=== PATIENT | female | born 2000 | race Caucasian/White ===

== ENCOUNTER 2021-07-22 08:17 | Emergency (ER) | payer MEDICAID, OTHER ==
[~2021-07-22] VITALS: Ht 160 cm; Wt 95.3 kg
--- NOTE | 2021-07-22 08:55 | ED Abdominal Pain ---
General Chief Complaint: Abdominal/GI Problems Stated Complaint: EPIGASTRIC PAIN; VOMITING Nursing Triage Note: Patient reports sudden onset of nausea/vomiting/diarrhea and epigastric pain at 0200 this morning. She reports she has been seeing her PCP since March for suspected gallbladder disease, but states she normally does not have diarrhea or epigastric pain with her gallbladder attacks. She states her PCP has had her taking protonix since July 15. She denies any sick contacts. Source of Information: Patient Exam Limitations: No Limitations History of Present Illness Date Seen by Provider: Jul 22, 2021 Time Seen by Provider: 08:24 Initial Comments 21-year-old female with no significant past medical history coming in due to abdominal pain. She said she began having intermittent abdominal pain starting in March. At that point it would last 45 minutes or so and then go away it was like stabbing pain in the upper abdomen. July 10 the pain became more severe and constant. She saw her doctor on July 15 and was started on Protonix. She was told that it could be her gallbladder. Pain had been better until 2 AM this morning when it became severe, she started having vomiting that was nonbloody nonbilious as well as diarrhea. She had vomiting and diarrhea with the July 10 episode as well. Prior to this, she would have some nausea but never actually vomited. Food does not seem to change it for the better or worse. She is otherwise denying any other acute complaints including any fever, chest pain, shortness of breath, vaginal bleeding, vaginal discharge, dysuria, urinary frequency, rash, weakness, numbness, or any other concerns. She is on the shots, is unsure of her last LMP. Allergies and Home Medications Allergies Coded Allergies: No Known Drug Allergies (Unverified , 07/22/21) Patient Home Medication List Home Medication List Reviewed: Yes Review of Systems Review of Systems Constitutional: No chills, No fever EENTM: No Blurred Vision Respiratory: Denies Cough, Denies Shortness of Air Cardiovascular: Denies Chest Pain Gastrointestinal: Abdominal Pain, Diarrhea, Nausea, Vomiting Genitourinary: No Symptoms Reported Musculoskeletal: no symptoms reported Skin: no symptoms reported Psychiatric/Neurological: No Symptoms Reported Endocrine: No Symptoms Reported Hematologic/Lymphatic: No Symptoms Reported All Other Systems Reviewed Negative Unless Noted: Yes Past Tlvmpvz-Tfbhkj-Rtdgsz Hx Patient Social History Tobacco Use?: No Use of E-Cig and/or Vaping dev: Yes Substance use?: No Alcohol Use?: Yes Alcohol type: Beer Alcohol Frequency: Couple times a week Pt feels they are or have been: No Past Medical History Surgeries: Yes Orthopedic (right hand surgery) Physical Exam Vital Signs Vital Signs - First Documented 07/22/21 08:35 Temp 35.4 Pulse 73 Resp 16 B/P (MAP) 143/81 (101) Pulse Ox 99 O2 Delivery Room Air Capillary Refill : Less Than 3 Seconds Height/Weight/BMI Height: '" Weight: lbs. oz. kg; 37.00 BMI Method: General Appearance: WD/WN, no apparent distress HEENT: PERRL/EOMI, normal ENT inspection, pharynx normal Neck: non-tender, full range of motion, supple, normal inspection Respiratory: chest non-tender, lungs clear, normal breath sounds, no respiratory distress, no accessory muscle use Cardiovascular: regular rate, rhythm, no edema, no murmur Gastrointestinal: normal bowel sounds, soft; No distended, No guarding, No rebound; tenderness Extremities: normal range of motion, non-tender, normal inspection, no pedal edema, no calf tenderness, normal capillary refill Back: normal inspection, no CVA tenderness, no vertebral tenderness Neurologic/Psychiatric: no motor/sensory deficits, alert, normal mood/affect Skin: normal color, warm/dry Progress/Results/Core Measures Results/Orders Lab Results Laboratory Tests Test 07/22/21 08:20 07/22/21 08:53 Range/Units Urine Test NEGATIVE NEGATIVE White Blood Count 7.3 4.3-11.0 10^3/uL Red Blood Count 4.27 3.80-5.11 10^6/uL Hemoglobin 14.1 11.5-16.0 g/dL Hematocrit 40 35-52 % Mean Corpuscular Volume 94 80-99 fL Mean Corpuscular Hemoglobin 33 25-34 pg Mean Corpuscular Hemoglobin Concent 35 32-36 g/dL Red Cell Distribution Width 12.1 10.0-14.5 % Platelet Count 312 130-400 10^3/uL Mean Platelet Volume 9.7 9.0-12.2 fL Immature Granulocyte % (Auto) 0 % Neutrophils (%) (Auto) 80 H 42-75 % Lymphocytes (%) (Auto) 13 12-44 % Monocytes (%) (Auto) 6 0-12 % Eosinophils (%) (Auto) 1 0-10 % Basophils (%) (Auto) 0 0-10 % Neutrophils # (Auto) 5.9 1.8-7.8 X 10^3 Lymphocytes # (Auto) 1.0 1.0-4.0 X 10^3 Monocytes # (Auto) 0.4 0.0-1.0 X 10^3 Eosinophils # (Auto) 0.0 0.0-0.3 10^3/uL Basophils # (Auto) 0.0 0.0-0.1 10^3/uL Immature Granulocyte # (Auto) 0.0 0.0-0.1 10^3/uL Sodium Level 137 135-145 MMOL/L Potassium Level 4.0 3.6-5.0 MMOL/L Chloride Level 104 98-107 MMOL/L Carbon Dioxide Level 22 21-32 MMOL/L Anion Gap 11 5-14 MMOL/L Blood Urea Nitrogen 10 7-18 MG/DL Creatinine 0.75 0.60-1.30 MG/DL Estimat Glomerular Filtration Rate 99 BUN/Creatinine Ratio 13 Glucose Level 115 H 70-105 MG/DL Calcium Level 9.6 8.5-10.1 MG/DL Corrected Calcium 8.5-10.1 MG/DL Total Bilirubin 1.2 H 0.1-1.0 MG/DL Aspartate Amino Transf (AST/SGOT) 271 H 5-34 U/L Alanine Aminotransferase (ALT/SGPT) 167 H 0-55 U/L Alkaline Phosphatase 95 40-136 U/L Total Protein 7.8 6.4-8.2 GM/DL Albumin 4.7 H 3.2-4.5 GM/DL Lipase 24 8-78 U/L My Orders Orders - JACKY LEGER MD Ondansetron Injection (Zofran Injectio (07/22/21 09:00) Lidocaine 2% Viscous 15 Ml (Xylocaine Vi (07/22/21 09:00) Antacid Suspension (Mylanta Suspension (07/22/21 09:00) Ed Iv/Invasive Line Start (07/22/21 08:48) Comprehensive Metabolic Panel (07/22/21 08:48) Lipase (07/22/21 08:48) Cbc With Automated Diff (07/22/21 08:48) Ct Abdomen/Pelvis W (07/22/21 08:48) Hcg,Qualitative Urine (07/22/21 08:53) Iohexol Injection (Omnipaque 350 Mg/Ml 1 (07/22/21 09:30) Received Contrast (Hold Metformin- Contr (07/22/21 09:30) Ns (Ivpb) (Sodium Chloride 0.9% Ivpb Bag (07/22/21 09:30) Medications Given in ED Current Medications Medications Dose Ordered Sig/Brayan Route Start Time Stop Time Status Last Admin Dose Admin Al Hydrox/Mg Hydrox/Simethicone 30 ml ONCE ONCE PO 07/22/21 09:00 07/22/21 09:01 DC 07/22/21 09:03 30 ML Iohexol 100 ml ONCE ONCE IV 07/22/21 09:30 07/22/21 09:32 DC 07/22/21 09:38 100 ML Lidocaine HCl 15 ml ONCE ONCE PO 07/22/21 09:00 07/22/21 09:01 DC 07/22/21 09:03 15 ML Ondansetron HCl 4 mg ONCE ONCE IVP 07/22/21 09:00 07/22/21 09:01 DC 07/22/21 09:03 4 MG Sodium Chloride 100 ml ONCE ONCE IV 07/22/21 09:30 07/22/21 09:32 DC 07/22/21 09:38 80 ML Vital Signs/I&O 07/22/21 08:35 Temp 35.4 Pulse 73 Resp 16 B/P (MAP) 143/81 (101) Pulse Ox 99 O2 Delivery Room Air Blood Pressure Mean: 101 Progress Progress Note : Progress Note 21-year-old female with above history coming in due to abdominal pain with nausea and diarrhea. ABCs were intact and vitals were stable on presentation. Physical exam with epigastric and right upper quadrant tenderness. The patient contacted her PCP this morning they told her to come to the ER to get a "scan". Given the vomiting and diarrhea this very likely could be gastroenteritis which has been going around this community, however she is a little bit more tender locally than I would expect. Because of this an IV was placed and basic labs including LFTs and urine test ordered. CT abdomen pelvis with contrast ordered as well. She was given Zofran for nausea as well as Maalox and lidocaine for the pain to see if that would help. Labs significant for normal white blood cell count, negative test, n ormal lipase, slightly elevated bilirubin at 1.2 which is near normal, slightly elevated AST and ALT around 200. CT abdomen and pelvis with gallstones but no signs of cholecystitis,, bile duct slightly dilated at 1 cm but otherwise no other acute findings. I called and discussed the case with the surgeon on-call Dr. Velázquez, and given her normal vitals and otherwise is well-appearing he does believe it is possibly choledocholithiasis but that she likely passed the stones all the time. He wants to follow her up as an outpatient and take her gallbladder out soon. He recommended repeat labs on Tuesday and if they are trending up that she needs to come back to the ER. I discussed all of this with the patient, and given she is well-appearing with repeat abdominal exam without any signs of peritonitis, vitals normal, and no signs of ascending cholangitis I believe this is a thorough plan. She is agreeable and says she has rapid follow-up with her PCP today and will get the labs ordered for Tuesday. I believe she is stable for discharge. She was sent home with strict return precautions. Diagnostic Imaging Plain Films/CT/US/NM/MRI: abdomen, pelvis Comments [facility], [place] NAME: MELY VAZQUEZ [facility] REC#: [id number] PT STATUS: REG ER : 2000 PHYSICIAN: JACKY LEGER MD ADMIT DATE: 07/22/21/ER FS Draft Date of Exam:07/22/21 CT ABDOMEN/PELVIS W EXAMINATION: CT abdomen and pelvis with intravenous contrast. TECHNIQUE: Multiple contiguous axial images were obtained through the abdomen and pelvis after the uneventful administration of intravenous contrast. All CT scans use one or more of the following dose optimizing techniques: automated exposure control, MA and/or KvP adjustment based on patient size and exam type or iterative reconstruction. HISTORY: RUQ pain. COMPARISON: None available. FINDINGS: Lung bases: The lung bases are clear. Solid organs: Heterogeneous attenuation in the liver is nonspecific. Liver is otherwise unremarkable. Multiple layering hyperdense stones within the gallbladder. There is mild dilatation of the common bile duct measuring up to 1.0 cm. Pancreas is normal. Spleen is normal. Adrenal glands are normal. The kidneys are normal without hydronephrosis. Bowel: The stomach and small bowel are normal without obstruction. The colon and appendix are normal. Peritoneum: There is no intraperitoneal free fluid or free air. No suspicious lymphadenopathy. Vasculature: Normal without aneurysm. Musculoskeletal: No suspicious osseous lesion or compression fracture. Pelvis: The uterus and adnexa are normal. The urinary bladder is normal. IMPRESSION: 1. No acute abnormality in the abdomen or pelvis. 2. Mild dilatation of the common bile duct measuring up to 1.0 cm. This could be further evaluated with MRCP and correlation with liver enzymes. Dictated on workstation # [id number] Dict: 07/22/2142 Trans: 07/22/2149 [id number] Interpreted by: NAZARIO RODGERS DO Electronically signed by: Departure Impression Primary Impression: Gallstones Additional Impressions: Transaminitis RUQ abdominal pain Disposition: HOME, SELF-CARE Condition: Stable Departure-Patient Inst. Decision time for Depature: 10:23 Referrals: BRIAN WHITTAKER (PCP) Primary Care Physician TOY,LOCAL PHYSICIAN (Family) Primary Care Physician DAILY VELÁZQUEZ MD Patient Instructions: Clear Liquid Diet, Gallstones Add. Discharge Instructions: You were seen in the emergency department for upper abdominal pain. You do have gallstones on your CT but no evidence of cholecystitis which is when the g allstones are completely blocking your gallbladder making inflamed and infected. Likely a gallstone did slightly pass because your common bile duct is 1 cm. Your AST and ALT were around 200 as well and your total bilirubin is 1.2. Please show these numbers to your primary care doctor and have them do repeat labs for this Tuesday to be sure they are trending down. Please call Dr. Velázquez and schedule an appointment as he says he does want to take your gallbladder out. If you have worsening pain, vomiting that is uncontrollable, or fever then I would want you to come back to the ER before that. Otherwise stick with a clear liquid diet, anything that has a lot of fat in it such as grease or fast food will cause your gallbladder to have more pain. Scripts Ondansetron (Ondansetron Odt) 4 Mg Tab.rapdis 4 MG PO Q6H PRN for NAUSEA/VOMITING for 5 Days, #20 TAB Prov: JACKY LEGER MD 07/22/21 Oxycodone HCl (Oxycodone HCl) 5 Mg Tablet 5 MG PO Q6H PRN for PAIN-MODERATE (5-7) for 3 Days, #12 TAB Prov: JACKY LEGER MD 07/22/21 Work/School Note: Work Release Form Date Seen in the Emergency Department: Jul 22, 2021 Return to Work: Jul 25, 2021 Restrictions: No Restrictions JACKY LEGER MD Jul 22, 2021 08:55
[2021-07-22] MEDS ORDERED: ONDANSETRON 4 MG/2 ML (SDV) Z0FRAN IVP ONE (09:00)
[2021-07-22] MEDS ORDERED: ANTACID SUSP 30 ML UDC (MYLANTA) PO ONE (09:00)
[2021-07-22] MEDS ORDERED: LIDOCAINE 2% VISCOUS 15 ML UDC PO ONE (09:00)
[2021-07-22 09:09] LABS: HEMATOCRIT 40 % (35-52); HEMOGLOBIN 14.1 g/dL (11.5-16.0); MEAN CORPUSCULAR HEMOGLOBIN 33 pg (25-34); MEAN CORPUSCULAR HGB CONC 35 g/dL (32-36); MEAN CORPUSCULAR VOLUME 94 fL (80-99); MEAN PLATELET VOLUME 9.7 fL (9.0-12.2); PLATELET COUNT 312 10^3/uL (130-400); WHITE BLOOD COUNT 7.3 10^3/uL (4.3-11.0)
[2021-07-22 09:10] LABS: BASOPHILS % (AUTO) 0 % (0-10); EOSINOPHILS % (AUTO) 1 % (0-10); LYMPHOCYTES % (AUTO) 13 % (12-44); MONOCYTES % (AUTO) 6 % (0-12); NEUTROPHILS % (AUTO) 80 % (42-75)
[2021-07-22 09:11] LABS: MONOCYTES # (AUTO) 0.4 X 10^3 (0.0-1.0); NEUTROPHILS # (AUTO) 5.9 X 10^3 (1.8-7.8)
[2021-07-22 09:25] LABS: CHLORIDE 104 MMOL/L (98-107); SODIUM 137 MMOL/L (135-145)
[2021-07-22 09:26] LABS: ALANINE AMINOTRANSFERASE 167 U/L (0-55); ALBUMIN 4.7 GM/DL (3.2-4.5); ALKALINE PHOSPHATASE 95 U/L (40-136); BILIRUBIN,TOTAL 1.2 MG/DL (0.1-1.0); BUN/CREATININE RATIO 13; CALCIUM 9.6 MG/DL (8.5-10.1); CARBON DIOXIDE 22 MMOL/L (21-32); CREATININE SERUM 0.75 MG/DL (0.60-1.30); GFR ESTIMATED 99; GLUCOSE 115 MG/DL (70-105); TOTAL PROTEIN 7.8 GM/DL (6.4-8.2)
[2021-07-22] MEDS ORDERED: HOLD METFORMIN - RECEIVED CONTRAST 20 ML VIAL IV SCH (09:30)
[2021-07-22] MEDS ORDERED: NS 100 ML (IVPB) BAG IV ONE (09:30)
[2021-07-22] MEDS ORDERED: IOHEXOL 350 MG/ML 100 ML (OMNIPAQUE 350) VIAL IV ONE (09:30)
--- NOTE | 2021-07-22 09:49 | Diagnostic Imaging Report ---
EXAMINATION: CT abdomen and pelvis with intravenous contrast. TECHNIQUE: Multiple contiguous axial images were obtained through the abdomen and pelvis after the uneventful administration of intravenous contrast. All CT scans use one or more of the following dose optimizing techniques: automated exposure control, MA and/or KvP adjustment based on patient size and exam type or iterative reconstruction. HISTORY: RUQ pain. COMPARISON: None available. FINDINGS: Lung bases: The lung bases are clear. Solid organs: Heterogeneous attenuation in the liver is nonspecific. Liver is otherwise unremarkable. Multiple layering hyperdense stones within the gallbladder. There is mild dilatation of the common bile duct measuring up to 1.0 cm. Pancreas is normal. Spleen is normal. Adrenal glands are normal. The kidneys are normal without hydronephrosis. Bowel: The stomach and small bowel are normal without obstruction. The colon and appendix are normal. Peritoneum: There is no intraperitoneal free fluid or free air. No suspicious lymphadenopathy. Vasculature: Normal without aneurysm. Musculoskeletal: No suspicious osseous lesion or compression fracture. Pelvis: The uterus and adnexa are normal. The urinary bladder is normal. IMPRESSION: 1. No acute abnormality in the abdomen or pelvis. 2. Mild dilatation of the common bile duct measuring up to 1.0 cm. This could be further evaluated with MRCP and correlation with liver enzymes. Dictated by: Dictated on workstation # [id number]
[2021-07-22 09:58] LABS: LIPASE 24 U/L (8-78)
[2021-07-22] MEDS ORDERED: ONDA4TAB11 PO (10:26)
[2021-07-22] MEDS ORDERED: OXYC5TAB PO (10:26)
[2021-07-22 10:34] VITALS: BP 143/81
== END 2021-07-22 10:40 | disposition home or self-care (01) ==
LOC: ER FS 08:20
DX: K80.80 Other cholelithiasis without obstruction (principal); R74.01 Elevation of levels of liver transaminase levels
CPT/HCPCS: 36415; 74177; 80053; 83690; 84703; 85025

== ENCOUNTER 2021-07-29 05:42 | Outpatient (CLI) | payer MEDICAID ==
[~2021-07-29] VITALS: Ht 160 cm; Wt 96.2 kg
[~2021-07-29 05:42] MED LIST: ONDA4TAB11 PO; OXYC5TAB PO
[2021-07-29] MEDS ORDERED: DICY10CA12 PO (12:30)
== END 2021-07-29 12:47 | disposition home or self-care (01) ==
LOC: PREOP 05:42
PROVIDERS: ATTEND Surgery
DX: Z01.818 Encounter for other preprocedural examination (principal)

== ENCOUNTER 2021-07-30 01:01 | Emergency (ER) | payer MEDICAID ==
[~2021-07-30] VITALS: Ht 160 cm; Wt 95.8 kg
[~2021-07-30 01:01] MED LIST changes: +DICY10CA12 PO
[2021-07-30] MEDS ORDERED: KETOROLAC 30 MG/ML VIAL IVP STA (01:29)
[2021-07-30] MEDS ORDERED: NS IV 1000 ML 1,000 ML IV STA (01:29)
[2021-07-30] MEDS ORDERED: ONDANSETRON 4 MG/2 ML (SDV) Z0FRAN IVP STA (01:29)
--- NOTE | 2021-07-30 01:36 | ED GI ---
General Chief Complaint: Abdominal/GI Problems Stated Complaint: LOWER ABDOMINAL PAIN Nursing Triage Note: Pt c/o RUQ abd pain with n/v. Reports she is to have her gallbladder removed on Tuesday but ate "tator tot casserole" and pain began at 11pm yesterday. Source of Information: Patient, Old Records History of Present Illness Date Seen by Provider: Jul 30, 2021 Time Seen by Provider: 01:07 Initial Comments 21 yo female presenting with recurrent epigastric and RUQ abdominal pain with n/v that has been worse since eating Tater-Tot Casserole this evening. She is scheduled to have cholecystectomy on TuesdayJul 31 (Tomorrow) but with severe pain and recurrent n/v she came to the ED. She denies fever but has had chills and sweats prior to emesis. She denies pain with urination. She has not had any vaginal discharge. She denies any diarrhea. Severity/Quality: Severe Location: RUQ, Epigastric Radiation: RUQ, Epigastric Activities at Onset: Other (Eating Tater-tot casserole) Modifying Factors: Worsens With Movement, Worsens With Palpation Associated Symptoms: Back Pain; No Chest Pain; Diaphoresis; No Fatigue, No Headache, No Heartburn; Nausea/Vomiting; No Rash, No Shortness of Air, No Swelling/Mass in Abdomen, No Syncope, No Weakness Allergies and Home Medications Allergies Coded Allergies: No Known Drug Allergies (Unverified , 07/29/21) Patient Home Medication List Home Medication List Reviewed: Yes Dicyclomine HCl (Dicyclomine HCl) 10 Mg Capsule, 10 MG PO Q6H, (Reported) Entered as Reported by: OPHELIA BECKETT on 07/29/21 1230 Ondansetron (Ondansetron Odt) 4 Mg Tab.rapdis, 4 MG PO Q6H PRN for NAUSEA/VOMITING Prescribed by: JACKY LEGER on 07/22/21 1026 Discontinued Medications Oxycodone HCl (Oxycodone HCl) 5 Mg Tablet, 5 MG PO Q6H PRN for PAIN-MODERATE (5- 7) Discontinued Reason: No Longer Taking Prescribed by: JACKY LEGER on 07/22/21 1026 Review of Systems Review of Systems Constitutional: see HPI EENTM: No Symptoms Reported Respiratory: No Symptoms Reported Gastrointestinal: See HPI Genitourinary: See HPI Musculoskeletal: no symptoms reported Skin: no symptoms reported Psychiatric/Neurological: No Symptoms Reported Past Ypgvqny-Ffousd-Eqkpfi Hx Seasonal Allergies Seasonal Allergies: No Past Medical History Surgery/Hospitalization HX: Gallstones with biliary colic Jul 2021. Surgeries: Yes (RIGHT HAND, SCOPE RIGHT SHOULDER) Orthopedic Respiratory: No Cardiac: No Neurological: No Sexually Transmitted Disease: No Genitourinary: No Gastrointestinal: No Musculoskeletal: No Endocrine: No HEENT: No Cancer: No Psychosocial: No Integumentary: No Blood Disorders: No Physical Exam Vital Signs Vital Signs - First Documented 07/30/21 01:10 Temp 36.6 Pulse 70 Resp 20 B/P (MAP) 110/71 (84) Pulse Ox 100 O2 Delivery Room Air Capillary Refill : Less Than 3 Seconds Height/Weight/BMI Height: '" Weight: lbs. oz. kg; 37.00 BMI Method: General Appearance: severe distress, obese HEENT: PERRL/EOMI, normal ENT inspection, TMs normal, pharynx normal Neck: non-tender, full range of motion, supple, normal inspection Respiratory: chest non-tender, lungs clear, normal breath sounds Cardiovascular: normal peripheral pulses, regular rate, rhythm Gastrointestinal: soft, no pulsatile mass, abnormal bowel sounds (hypoactive), guarding (RUQ), rebound (RUQ), tenderness (RUQ) Rectal: deferred Extremities: normal range of motion, non-tender, normal inspection, normal capillary refill Neurologic/Psychiatric: alert, oriented x 3 Skin: normal color, warm/dry Progress/Results/Core Measures Results/Orders Lab Results Laboratory Tests Test 07/30/21 01:25 Range/Units White Blood Count 11.2 H 4.3-11.0 10^3/uL Red Blood Count 4.15 3.80-5.11 10^6/uL Hemoglobin 13.7 11.5-16.0 g/dL Hematocrit 39 35-52 % Mean Corpuscular Volume 95 80-99 fL Mean Corpuscular Hemoglobin 33 25-34 pg Mean Corpuscular Hemoglobin Concent 35 32-36 g/dL Red Cell Distribution Width 11.9 10.0-14.5 % Platelet Count 306 130-400 10^3/uL Mean Platelet Volume 9.7 9.0-12.2 fL Immature Granulocyte % (Auto) 0 % Neutrophils (%) (Auto) 65 42-75 % Lymphocytes (%) (Auto) 26 12-44 % Monocytes (%) (Auto) 6 0-12 % Eosinophils (%) (Auto) 2 0-10 % Basophils (%) (Auto) 0 0-10 % Neutrophils # (Auto) 7.3 1.8-7.8 X 10^3 Lymphocytes # (Auto) 3.0 1.0-4.0 X 10^3 Monocytes # (Auto) 0.7 0.0-1.0 X 10^3 Eosinophils # (Auto) 0.3 0.0-0.3 10^3/uL Basophils # (Auto) 0.0 0.0-0.1 10^3/uL Immature Granulocyte # (Auto) 0.0 0.0-0.1 10^3/uL Urine Color YELLOW Urine Clarity CLEAR Urine pH 7.0 5-9 Urine Specific [place] 1.025 H 1.016-1.022 Urine Protein NEGATIVE NEGATIVE Urine Glucose (UA) NEGATIVE NEGATIVE Urine Ketones NEGATIVE NEGATIVE Urine Nitrite NEGATIVE NEGATIVE Urine Bilirubin NEGATIVE NEGATIVE Urine Urobilinogen 0.2 < = 1.0 MG/DL Urine Leukocyte Esterase NEGATIVE NEGATIVE Urine RBC (Auto) NEGATIVE NEGATIVE Urine RBC NONE /HPF Urine WBC RARE /HPF Urine Squamous Epithelial Cells RARE /HPF Urine Crystals NONE /LPF Urine Bacteria NEGATIVE /HPF Urine Casts NONE /LPF Urine Mucus NEGATIVE /LPF Urine Culture Indicated NO Sodium Level 138 135-145 MMOL/L Potassium Level 3.5 L 3.6-5.0 MMOL/L Chloride Level 102 98-107 MMOL/L Carbon Dioxide Level 24 21-32 MMOL/L Anion Gap 12 5-14 MMOL/L Blood Urea Nitrogen 14 7-18 MG/DL Creatinine 0.95 0.60-1.30 MG/DL Estimat Glomerular Filtration Rate 75 BUN/Creatinine Ratio 15 Glucose Level 122 H 70-105 MG/DL Calcium Level 9.6 8.5-10.1 MG/DL Corrected Calcium 9.3 8.5-10.1 MG/DL Total Bilirubin 0.3 0.1-1.0 MG/DL Aspartate Amino Transf (AST/SGOT) 81 H 5-34 U/L Alanine Aminotransferase (ALT/SGPT) 68 H 0-55 U/L Alkaline Phosphatase 81 40-136 U/L Total Protein 7.5 6.4-8.2 GM/DL Albumin 4.4 3.2-4.5 GM/DL Lipase 36 8-78 U/L My Orders Orders - BREANA LYNN MD Comprehensive Metabolic Panel (07/30/21:) Lipase (07/30/21:) Ua Culture If Indicated (07/30/21) Ed Iv/Invasive Line Start (07/30/21:29) Cbc With Automated Diff (07/30/21:) Ct Abdomen/Pelvis W (07/30/21:29) Ns Iv 1000 Ml (Sodium Chloride 0.9%) (07/30/21:) Ketorolac Injection (Toradol Injection) (07/30/21) Ondansetron Injection (Zofran Injectio (07/30/21) Urine Bedside (07/30/21:) Iohexol Injection (Omnipaque 350 Mg/Ml 1 (07/30/21 01:45) Received Contrast (Hold Metformin- Contr (07/30/21 01:45) Sodium Chloride Flush (Catheter Flush Sy (07/30/21 01:45) Ns (Ivpb) (Sodium Chloride 0.9% Ivpb Bag (07/30/21 01:45) Metoclopramide Injection (Reglan Injecti (07/30/21 01:46) Medications Given in ED Current Medications Medications Dose Ordered Sig/Brayan Route Start Time Stop Time Status Last Admin Dose Admin Iohexol 100 ml ONCE ONCE IV 07/30/21 01:45 07/30/21 01:46 DC 07/30/21 02:17 100 ML Sodium Chloride 10 ml NEEDED PRN IV 07/30/21 01:45 07/30/21 04:02 DC 07/30/21 02:17 10 ML Sodium Chloride 100 ml ONCE ONCE IV 07/30/21 01:45 07/30/21 01:46 DC 07/30/21 02:17 80 ML Vital Signs/I&O 07/30/21 07/30/21 01:10 03:21 Temp 36.6 Pulse 70 73 Resp 20 17 B/P (MAP) 110/71 (84) 116/66 Pulse Ox 100 97 O2 Delivery Room Air Blood Pressure Mean: 84 Progress Progress Note #1: Progress Note With patient having severe discomfort and pain recurrent episodes of nausea and vomiting will have to repeat labs and testing to see if she is having any acute worsening of symptoms that would require more emergent surgery. Give IV fluids for hydration, Zofran for nausea, Toradol for pain. Progress Note #2: Progress Note Labs show improved white blood cell count. Her chemistry shows greatly improved liver enzymes. She was having some nausea prior to going to CT but by the time she arrived back from radiology she declined having a dose of Reglan with Benadryl because she felt like her nausea was resolved. On my review of the CT scan she had no acute significant changes. Patient had improved symptoms with treatment in the ED. As she was doing better and her labs appear to show some clinical improvement will discharge to home with strict return precautions and advised to avoid fatty greasy foods Diagnostic Imaging Diagonstic Imaging: CT Plain Films/CT/US/NM/MRI: abdomen, pelvis Comments Impression: 1. Distended gallbladder with gallstones. No evidence of acute cholecystitis. 2. Common bile duct is mildly prominent measuring up to 10 mm. No obstructing lesion identified. 3. Apparent wall thickening of the gastric antrum which may represent a nonspecific gastritis. Read by radiologist Dr. Silvino Gonzalez MD. Study was read at 0231 and faxed at [phone] Reviewed: Reviewed [place] Study, Reviewed by Me Departure Impression Primary Impression: Recurrent biliary colic Additional Impression: Nausea & vomiting Qualified Codes: R11.14 - Bilious vomiting Disposition: 01 HOME, SELF-CARE Condition: Improved Departure-Patient Inst. Decision time for Depature: 03:04 Referrals: BRIAN WHITTAKER (PCP) Primary Care Physician DAILY DESHPANDE MD Patient Instructions: Gallstones ED, Nausea and Vomiting, Adult ED Add. Discharge Instructions: Follow a liquid or strict low fat diet to help avoid recurrent pain until you have your surgery on Tuesday, July 31. All discharge instructions reviewed with patient and/or family. Voiced understanding. BREANA LYNN MD Jul 30, 2021 01:36
[2021-07-30 01:38] LABS: BILIRUBIN,URINE NEGATIVE (NEGATIVE); CLARITY,URINE CLEAR; COLOR,URINE YELLOW; GLUCOSE, URINE (UA) NEGATIVE (NEGATIVE); KETONES,URINE NEGATIVE (NEGATIVE); LEUKOCYTE ESTERASE ,URINE NEGATIVE (NEGATIVE); NITRITE,URINE NEGATIVE (NEGATIVE); PROTEIN,URINE NEGATIVE (NEGATIVE)
[2021-07-30] MEDS ORDERED: HOLD METFORMIN - RECEIVED CONTRAST 20 ML VIAL IV SCH (01:45)
[2021-07-30] MEDS ORDERED: CATHETER FLUSH 10 ML SYR IV PRN (01:45)
[2021-07-30] MEDS ORDERED: NS 100 ML (IVPB) BAG IV ONE (01:45)
[2021-07-30] MEDS ORDERED: IOHEXOL 350 MG/ML 100 ML (OMNIPAQUE 350) VIAL IV ONE (01:45)
[2021-07-30] MEDS ORDERED: METOCLOPRAMIDE INJ 10 MG/2 ML (REGLAN) IVP STA (01:46)
[2021-07-30 01:51] LABS: HEMATOCRIT 39 % (35-52); HEMOGLOBIN 13.7 g/dL (11.5-16.0); MEAN CORPUSCULAR HEMOGLOBIN 33 pg (25-34); MEAN CORPUSCULAR HGB CONC 35 g/dL (32-36); MEAN CORPUSCULAR VOLUME 95 fL (80-99); MEAN PLATELET VOLUME 9.7 fL (9.0-12.2); PLATELET COUNT 306 10^3/uL (130-400); WHITE BLOOD COUNT 11.2 10^3/uL (4.3-11.0)
[2021-07-30 01:52] LABS: BASOPHILS % (AUTO) 0 % (0-10); EOSINOPHILS # (AUTO) 0.3 10^3/uL (0.0-0.3); EOSINOPHILS % (AUTO) 2 % (0-10); LYMPHOCYTES % (AUTO) 26 % (12-44); MONOCYTES # (AUTO) 0.7 X 10^3 (0.0-1.0); MONOCYTES % (AUTO) 6 % (0-12); NEUTROPHILS # (AUTO) 7.3 X 10^3 (1.8-7.8); NEUTROPHILS % (AUTO) 65 % (42-75)
[2021-07-30 01:53] LABS: BACTERIA,URINE NEGATIVE /HPF; SQUAMOUS EPITHELIAL CELL,UR RARE /HPF; WBC,URINE RARE /HPF
[2021-07-30 01:57] LABS: POTASSIUM 3.5 MMOL/L (3.6-5.0)
[2021-07-30 01:58] LABS: ALBUMIN 4.4 GM/DL (3.2-4.5); BILIRUBIN,TOTAL 0.3 MG/DL (0.1-1.0); CALCIUM 9.6 MG/DL (8.5-10.1); CREATININE SERUM 0.95 MG/DL (0.60-1.30); TOTAL PROTEIN 7.5 GM/DL (6.4-8.2)
[2021-07-30 03:21] VITALS: BP 116/66
--- NOTE | 2021-07-30 05:05 | Diagnostic Imaging Report ---
PROCEDURE: CT abdomen and pelvis with contrast. TECHNIQUE: Multiple contiguous axial images were obtained through the abdomen and pelvis after administration of intravenous contrast. Auto Exposure Controls were utilized during the CT exam to meet ALARA standards for radiation dose reduction. All CT scans use one or more of the following dose optimizing techniques: automated exposure control, MA and/or KvP adjustment based on patient size and exam type or iterative reconstruction. INDICATION: Right-sided abdominal pain Lung bases are clear. Liver appears normal. Gallbladder is distended and contains some small calculi. Portal vein is patent. Common duct is dilated measuring up to 10 mm. Pancreas appears normal. Spleen is not enlarged. Adrenals appear normal. Kidneys appear normal. Small bowel is not dilated. There is no evidence for appendicitis. There is moderate fecal stasis. There is some diverticulosis of the sigmoid colon. The uterus appears normal. Adnexa unremarkable. There is no intraperitoneal free air or free fluid. IMPRESSION: Cholecystolithiasis with a mildly dilated common bile duct. I agree with preliminary interpretation. Dictated by: Dictated on workstation # [id number]
[2021-07-31] MEDS ORDERED: HYDR-3817 PO (10:52)
== END 2021-07-30 03:21 | disposition home or self-care (01) ==
LOC: EDUNIT# 01:01 → ER FS 01:04
DX: K80.50 Calculus of bile duct without cholangitis or cholecystitis without obstruction (principal); E66.9 Obesity, unspecified; Z68.37 Body mass index [BMI] 37.0-37.9, adult
CPT/HCPCS: 36415; 74177; 80053; 81000; 83690; 84703; 85025

== ENCOUNTER 2021-07-31 10:02 | Day surgery (SDC) | payer MEDICAID ==
[2021-07-31] VITALS (10 sets, daily range): BP systolic 117–141; BP diastolic 57–88
[~2021-07-31] VITALS: Ht 160 cm; Wt 95.8 kg
[2021-07-31] MEDS ORDERED: LIDOCAINE/EPI 1%-1:200,000 (XYLOCAINE) 30 ML VIAL ONE (10:13)
[2021-07-31] MEDS ORDERED: ceFAZolin 2 GM IV Premixed 50 ML IV ONE (10:45)
--- NOTE | 2021-07-31 10:51 | Progress Note-Pre Operative ---
Pre-Operative Progress Note H&P Reviewed The H&P was reviewed, patient examined and no changes noted. Date Seen by Provider: Jul 31, 2021 Time Seen by Provider: 10:00 Date H&P Reviewed: Jul 31, 2021 Time H&P Reviewed: 10:00 Pre-Operative Diagnosis: sx chronic calculous cholecystitis DAILY DESHPANDE MD Jul 31, 2021 10:51
[2021-07-31] MEDS ORDERED: HYDR-3817 PO (10:52)
--- NOTE | 2021-07-31 10:53 | Discharge Inst-Surgical ---
D/C Lap Instructions-JERAMY New, Converted, or Re-Newed RX: RX on Chart Follow Up Appt in 2 weeks Activity as tolerated No driving for 24 hours No driving while on pain medications Incentive Spirometry use every 2 hours while awake Regular Diet Symptoms to Report: Fever over 101 degree F, Nausea/Vomiting Infection Signs and Symptoms to report: Increased redness, Foul odor of wound, Increased drainage Bathing instructions: May shower Operative Area Clean/Dry; Keep incision clean/dry If any problems/questions: Contact your physician or go to Emergency Room DAILY DESHPANDE MD Jul 31, 2021 10:53
[2021-07-31] MEDS ORDERED: MIDAZOLAM 2 MG/2 ML (VERSED) VIAL ONE (10:56)
[2021-07-31] MEDS ORDERED: fentaNYL INJ 100 MCG/2 ML AMP ONE ×2 (10:56→12:16)
[2021-07-31] MEDS ORDERED: oxyCODONE/APAP 5/325MG (PERCOCET 5) TABLET PO PRN (11:00)
[2021-07-31] MEDS ORDERED: ACETAMINOPHEN 325 MG TABLET PO PRN (11:00)
[2021-07-31] MEDS ORDERED: ONDANSETRON 4 MG/2 ML (SDV) Z0FRAN IVP PRN ×2 (11:00→12:30)
[2021-07-31] MEDS ORDERED: morphine INJ 10 MG/ML 1ML (SYR OR VIAL) IVP PRN ×2 (11:00)
[2021-07-31] MEDS ORDERED: ONDANSETRON 4 MG (ZOFRAN) ORAL DISSOLVE TAB PO PRN (11:00)
[2021-07-31] MEDS: LACTATED RINGERS 1,000 ML IV PRN ×2 (11:00→12:04)
[2021-07-31] MEDS ORDERED: NEOSTIGMINE 3 MG/3 ML VIAL ONE (11:53)
[2021-07-31] MEDS ORDERED: GLYCOPYRROLATE 0.2 MG/ML (ROBINUL) 2 ML VIAL ONE (11:53)
[2021-07-31] MEDS ORDERED: LIDOCAINE PF 2% 5 ML (XYLOCAINE) VIAL ONE (11:53)
[2021-07-31] MEDS ORDERED: ONDANSETRON 4 MG/2 ML (SDV) Z0FRAN ONE ×2 (11:53→12:16)
[2021-07-31] MEDS ORDERED: ROCURONIUM 10 MG/ML 5 ML SYRINGE IV ONE (11:53)
--- NOTE | 2021-07-31 12:06 | Progress Note-Post Operative ---
Post-Operative Progess Note Surgeon (s)/Financial Institution Branch Manager (s) Surgeon DAILY DESHPANDE MD Financial Institution Branch Manager: rober curry LASTER HAND Pre-Operative Diagnosis sx chronic calculous cholecystitis Post-Operative Diagnosis same Procedure & Operative Findings Date of Procedure 07/31/21 Procedure Performed/Findings laparoscopic cholecystectomy Anesthesia Type get Estimated Blood Loss Estimated blood loss (mL): minimal Specimens/Packing Specimens Removed gallbladder DAILY DESHPANDE MD Jul 31, 2021 12:06
[2021-07-31] MEDS ORDERED: MEPERIDINE (DEMEROL) INJ 50 MG/ML ONE (12:28)
[2021-07-31] MEDS ORDERED: fentaNYL INJ 100 MCG/2 ML AMP IVP ONE (12:30)
[2021-07-31] MEDS ORDERED: morphine INJ 10 MG/ML 1ML (SYR OR VIAL) IVP ONE (12:30)
[2021-07-31] MEDS ORDERED: PROMETHAZINE INJ 25 MG/ML (PHENERGAN) AMP IVP ONE (12:30)
[2021-07-31] MEDS ORDERED: MEPERIDINE (DEMEROL) INJ 50 MG/ML IVP ONE (12:30)
--- NOTE | 2021-07-31 14:22 | Anesthesia-General Post-Op ---
General Patient Condition Mental Status/LOC: Same as Preop Cardiovascular: Satisfactory Nausea/Vomiting: Absent Respiratory: Satisfactory Pain: Controlled Complications: Absent Post Op Complications Complications None Follow Up Care/Instructions Patient Instructions None needed. Anesthesia/Patient Condition Patient Condition Patient is doing well, no complaints, stable vital signs, no apparent adverse anesthesia problems. No complications reported per nursing. TOBY JUSTICE CRNA Jul 31, 2021 14:22
--- NOTE | 2021-07-31 18:43 | OPERATIVE REPORT ---
DATE OF SERVICE: 07/31/2021 PREOPERATIVE DIAGNOSIS: Symptomatic chronic calculous cholecystitis. POSTOPERATIVE DIAGNOSIS: Symptomatic chronic calculous cholecystitis. PROCEDURE PERFORMED: Laparoscopic cholecystectomy. SURGEON: Daily Deshpande MD. ABLE BODIED SEAMAN: Red Arthur APRN. ANESTHESIA: General endotracheal. ESTIMATED BLOOD LOSS: Minimal. FINDINGS: Distended gallbladder with multiple gallstones. DISPOSITION: The patient tolerated the procedure well. INDICATIONS FOR PROCEDURE: The patient is a 21-year-old female, who has had three to six-month history of pain in the right upper abdominal quadrant with radiation towards the back as well as associated abdominal bloating usually after meals. She states that this was initially mild; however, worsened and became more frequent over the time. She had an ultrasound performed, which did show gallstones. DESCRIPTION OF PROCEDURE: The patient was brought to the operating room and laid supine on the table. After adequate IV pain and sedative medications and general endotracheal intubation, the abdomen was prepped and draped in a standard surgical fashion. A 0.5% Marcaine with epinephrine was used to anesthetize the overlying skin in the left upper abdominal quadrant and transverse skin incision was made using a 15 blade. A 0 silk suture was applied to the medial aspect of the incision for retraction and a Veress needle was inserted with a low opening pressure of 0 mmHg. The abdomen was then insufflated to 15 mmHg pressure. The Veress needle was removed and a 5 mm XL trocar was placed followed by a 5 mm 45-degree angle laparoscope visualizing the peritoneal cavity. A four-quadrant abdominal exploration was performed. There was a distended gallbladder, no gallbladder wall thickening. Under direct visualization, we then proceeded to place a supraumbilical 10 mm port after the skin and peritoneal lining were anesthetized using a 0.5% Marcaine with epinephrine and a transverse skin incision was made using a 15 blade. In a similar manner, a right upper abdominal quadrant 5 mm port was placed. The patient was then placed in a reverse Trendelenburg position as well as plane right side up and left side down. The omental adhesions towards the fundus of the gallbladder were then taken down using electrocautery on hook instrument. The hepatoduodenal ligament was then dissected using blunt dissection as well as electrocautery on the hook instrument as well as a [place] dissector. The critical view of safety was identified including the triangle of Calot as well as the cystic duct and artery as the only two structures going into the gallbladder as well as the cystic plate behind the proximal gallbladder. A timeout was then taken and the cystic duct and artery were then clipped proximally and distally and cut with EndoShears. The gallbladder was then dissected off the liver bed using cautery on the hook instrument with visualization of good hemostasis as well as no leaking ducts of Luschka. The gallbladder was removed through the 10 mm port site using an EndoCatch bag. The 10 mm port site fascia and peritoneum were then closed under direct visualization using a Soy-Eugene device and 0 Vicryl suture. The abdomen was then desufflated and remaining ports removed. All skin incisions were closed using 4-0 Monocryl running subcuticular sutures. Wounds were then cleaned and covered with Dermabond. The patient tolerated the procedure well. We will start IV normal pain medication as well as a clear liquid diet. Once she is tolerating clears, has good pain control with oral pain medications, and ambulating well, we will discharge her home. She will be instructed to do no heavy lifting or exertion for the next two weeks. Job ID: [id number] DocumentID: [id number] Dictated Date: 07/31/2021 12:17:03 Last Ironer Date: 07/31/2021 18:42:18 Dictated By: DAILY DESHPANDE MD
== END 2021-07-31 14:35 | disposition home or self-care (01) ==
LOC: SDC 10:02
PROVIDERS: ATTEND Surgery
DX: I10 Essential (primary) hypertension (principal)
CPT/HCPCS: 84703; 87081; 88304

== ENCOUNTER 2022-09-24 21:45 | Emergency (ER) | payer MEDICAID ==
[~2022-09-24] VITALS: Ht 162.5 cm; Wt 104.3 kg
[2022-09-24 21:45] VITALS: BP 149/93
[~2022-09-24 21:45] MED LIST changes: +HYDR-3817 PO
[2022-09-24] MEDS ORDERED: IBUPROFEN 800 MG (MOTRIN) TAB PO STA (22:03)
--- NOTE | 2022-09-24 22:07 | ED Lower Extremity ---
General Chief Complaint: Lower Extremity Stated Complaint: L FOOT INJURY Source: patient Exam Limitations: no limitations History of Present Illness Date Seen by Provider: Sep 24, 2022 Time Seen by Provider: 21:47 Initial Comments Here with report of left foot pain after she had a 25 pound weight dropped on it. Apparently her brother was working out and the weight fell off the bar when he was doing curls. Occurred approximately 20 minutes prior to arrival. Patient reported immediate pain. She does have swelling and bruising at the base of the fourth toe at the MTP. She complains of pain throughout that area. Denies other injuries. Onset: just prior to arrival Severity: moderate Pain/Injury Location: left foot, left 4th toe Method of Injury: direct blow Modifying Factors: Improves With Immobilization; Worse With Movement Allergies and Home Medications Allergies Coded Allergies: No Known Drug Allergies (Unverified , 07/29/21) Patient Home Medication List Home Medication List Reviewed: Yes Dicyclomine HCl (Dicyclomine HCl) 10 Mg Capsule, 10 MG PO Q6H, (Reported) Entered as Reported by: OPHELIA BECKETT on 07/29/21 1230 Hydrocodone/Acetaminophen (Hydrocodone-Acetamin 7.5-325) 1 Each Tablet, 1 EACH PO Q4H Prescribed by: DAILY DESHPANDE on 07/31/21 1052 Ondansetron (Ondansetron Odt) 4 Mg Tab.rapdis, 4 MG PO Q6H PRN for NAUSEA/VOMITING Prescribed by: JACKY LEGER on 07/22/21 1026 Review of Systems Constitutional: see HPI; No chills, No fever Musculoskeletal: see HPI, joint pain, joint swelling, muscle pain Skin: change in color; No lesions Psychiatric/Neurological: Denies Numbness, Denies Paresthesia Past Fkyfcmh-Mwhmxi-Ximurq Hx Patient Social History Tobacco Use?: No Use of E-Cig and/or Vaping dev: No Substance use?: No Immunizations Up To Date Tetanus Booster (TDap): Unknown Seasonal Allergies Seasonal Allergies: No Past Medical History Surgery/Hospitalization HX: Gallstones with biliary colic Jul 2021. Surgeries: Yes (RIGHT HAND, SCOPE RIGHT SHOULDER) Orthopedic Respiratory: No Currently Using CPAP: No Currently Using BIPAP: No Cardiac: No Neurological: No Female Reproductive Disorders: Denies Sexually Transmitted Disease: No HIV/AIDS: No Genitourinary: No Gastrointestinal: No Musculoskeletal: No Endocrine: No HEENT: No Cancer: No Psychosocial: No Integumentary: No Blood Disorders: No Family Medical History Reviewed Nursing Family Hx Physical Exam Vital Signs Vital Signs - First Documented 09/24/22 21:45 Temp 37.0 Pulse 96 Resp 18 B/P (MAP) 149/93 (111) Pulse Ox 97 O2 Delivery Room Air Capillary Refill : Height, Weight, BMI Height: '" Weight: lbs. oz. kg; 37.42 BMI Method: General Appearance: WD/WN, mild distress Cardiovascular: regular rate, rhythm, no murmur Respiratory: lungs clear, normal breath sounds Feet: left foot ecchymosis, left foot pain, left foot soft tissue tenderness, left foot swelling, left foot other (Pain and swelling greatest at the fourth MTP and slightly proximal and also involving the fourth toe.) Neurologic/Psychiatric: alert, oriented x 3 Skin: warm/dry, ecchymosis (As above) Progress/Results/Core Measures Results/Orders My Orders Orders - JOSIAH GRANGER MD Foot 3 View Left (09/24/22 22:03) Ibuprofen Tablet (Motrin Tablet) (09/24/22 22:03) Hydrocodone/Apap 5/325 Tablet (Lortab 5 (09/24/22 22:15) Medications Given in ED Current Medications Medications Dose Ordered Sig/Rbayan Route Start Time Stop Time Status Last Admin Dose Admin Acetaminophen/ Hydrocodone Bitart 1 ea ONCE ONCE PO 09/24/22 22:15 09/24/22 22:16 DC 09/24/22 21:55 1 EA Vital Signs/I&O 09/24/22 21:45 Temp 37.0 Pulse 96 Resp 18 B/P (MAP) 149/93 (111) Pulse Ox 97 O2 Delivery Room Air Progress Progress Note : Progress Note Seen and evaluated. X-ray left foot ordered. Hydrocodone 5/325 1 tab p.o. ordered as well as ibuprofen 800 mg p.o. Ice pack to be given. Monitor patient. 2219: No acute fracture noted on foot x-ray on my interpretation. Discharged home with return precautions. Patient verbalized understanding of instructions and agreement with plan. OTC meds discussed as well as outpatient plan. Diagnostic Imaging Diagonstic Imaging: Xray Plain Films/CT/US/NM/MRI: other Comments Left foot x-ray shows no acute fracture on my interpretation. Pending radiology interpretation. NAME: [facility] REC#: [id number] PT STATUS: REG ER : 2001 PHYSICIAN: JOSIAH GRANGER MD ADMIT DATE: 09/24/22/ER FS Draft Date of Exam:09/24/22 FOOT 3 VIEW LEFT INDICATION: Injury to left foot. EXAMINATION: AP, oblique and lateral views of the left foot were obtained. No fracture or acute bony abnormality is seen. Joint spaces are unremarkable. IMPRESSION: Negative left foot. Dictated on workstation # [id number] Dict: 09/24/222214 Trans: 09/24/222220 PJE [id number] Interpreted by: KRISTIAN SANTILLAN MD Electronically signed by: Reviewed: Reviewed by Me Departure Impression Primary Impression: Contusion of left foot Qualified Codes: S90.32XA - Contusion of left foot, initial encounter Disposition: HOME, SELF-CARE Condition: Stable Departure-Patient Inst. Decision time for Depature: 22:22 Referrals: [facility] [place] (PCP) Primary Care Physician BRIAN WHITTAKER (Family) Primary Care Physician Patient Instructions: Contusion (DC) Add. Discharge Instructions: All discharge instructions reviewed with patient and/or family. Voiced understanding. Use ice packs to area of concern 20 minutes/h as needed to reduce swelling over the next 1 to 2 days. You may take Tylenol/acetaminophen 1000 mg every 6-8 hours as needed for pain. You may take ibuprofen 800 mg every 8 hours as needed for pain. Your first dose of each of these would be tomorrow morning as you had this in the emergency department. Keep foot elevated as needed to reduce swelling. It is okay to walk on it but you will be sore. Use good supporting shoes when walking. Follow-up with your doctor in a few days for recheck as needed. Return for worse pain, swelling, weakness, numbness or other concerns as needed. JOSIAH GRANGER MD Sep 24, 2022 22:07
[2022-09-24] MEDS ORDERED: HYDROcodone/APAP 5 MG/325 MG (LORTAB) TAB PO ONE (22:15)
--- NOTE | 2022-09-24 22:21 | Diagnostic Imaging Report ---
INDICATION: Injury to left foot. EXAMINATION: AP, oblique and lateral views of the left foot were obtained. No fracture or acute bony abnormality is seen. Joint spaces are unremarkable. IMPRESSION: Negative left foot. Dictated by: Dictated on workstation # [id number]
== END 2022-09-24 22:25 | disposition home or self-care (01) ==
LOC: EDUNIT# 21:45 → ER FS 22:02
DX: S90.32XA Contusion of left foot, initial encounter (principal); Z28.311 Partially vaccinated for COVID-19; W20.8XXA Other cause of strike by thrown, projected or falling object, initial encounter
CPT/HCPCS: 73630

== ENCOUNTER → 2022-12-06 | Outpatient (CLI) | payer MEDICAID ==
--- NOTE | 2022-12-06 17:45 | Diagnostic Imaging Report ---
EXAMINATION: Right shoulder radiograph EXAM DATE: 12/06/2022 5:22 PM COMPARISON: None HISTORY: Right shoulder pain TECHNIQUE: 3 views FINDINGS: There is no acute fracture, dislocation, or destructive osseous process. The joint spaces are normal. The soft tissues are normal. IMPRESSION: 1. No acute osseous abnormality. Dictated by: Dictated on workstation # [id number]
== END ==
LOC: RAD FS 17:09
PROVIDERS: ATTEND Family Medicine
DX: M25.511 Pain in right shoulder (principal)
CPT/HCPCS: 73030

== ENCOUNTER → 2022-12-28 | Outpatient (CLI) | payer MEDICAID | LOC: ORTHO 08:45 | PROVIDERS: ATTEND Orthopaedic Surgery | DX: M79.2 Neuralgia and neuritis, unspecified (principal); M89.8X1 Other specified disorders of bone, shoulder | CPT/HCPCS: 99203 ==

== ENCOUNTER 2023-04-21 14:29 | Outpatient (CLI) | payer MEDICAID ==
[~2023-04-21] VITALS: Ht 162.6 cm; Wt 75.0 kg
[2023-04-21] MEDS ORDERED: PHEN37.58 PO (14:56)
[2023-04-21] MEDS ORDERED: GABA300S3 PO (14:56)
[2023-04-21] MEDS ORDERED: MELO15TA39 PO (14:56)
== END 2023-04-22 09:25 | disposition home or self-care (01) ==
LOC: PREOP 14:29
PROVIDERS: ATTEND Surgery
DX: Z01.818 Encounter for other preprocedural examination (principal)

== ENCOUNTER 2023-04-28 10:57 | Day surgery (SDC) | payer MEDICAID ==
[2023-04-28] VITALS (8 sets, daily range): BP systolic 91–116; BP diastolic 52–79
[~2023-04-28] VITALS: Ht 162.6 cm; Wt 75.0 kg
[~2023-04-28 10:57] MED LIST changes: +GABA300S3 PO; +MELO15TA39 PO; +PHEN37.58 PO
[2023-04-28] MEDS ORDERED: LACTATED RINGERS 1,000 ML 1,000 ML IV PRN (11:30)
[2023-04-28] MEDS ORDERED: ceFAZolin INJECTION 2,000 MG in NS (IVPB) 50 ML 50 ML IV ONE (11:30)
[2023-04-28] MEDS ORDERED: LIDOCAINE 1% w/EPI 1:100,000 20 ML VIAL ONE (11:38)
[2023-04-28] MEDS ORDERED: LIDOCAINE 1% w/EPI 1:100,000 20 ML VIAL INJ ONE (11:44)
--- NOTE | 2023-04-28 12:27 | Progress Note-Pre Operative ---
Pre-Operative Progress Note Date H&P Reviewed: Apr 28, 2023 Time H&P Reviewed: 12:25 History & Physical: H&P Reviewed, Patient Examed, No changes noted Pre-Operative Diagnosis: Right buttock symptomatic dermatofibroma KAVITHA GUTIERREZ APRN Apr 28, 2023 12:27
[2023-04-28] MEDS ORDERED: ACETAMINOPHEN 325 MG TABLET PO PRN (12:30)
[2023-04-28] MEDS ORDERED: ONDANSETRON INJECTION 4 MG/2 ML (SDV) IVP PRN ×2 (12:30→13:30)
[2023-04-28] MEDS ORDERED: HYDROcodone/ACETAMINOPHEN 5 MG/325 MG TABLET PO ONE (12:30)
[2023-04-28] MEDS ORDERED: morphine INJ 10 MG/ML 1ML (SYR OR VIAL) IVP PRN (12:30)
[2023-04-28] MEDS ORDERED: TRAM50TA3 PO (12:31)
--- NOTE | 2023-04-28 12:32 | Discharge Inst-Surgical ---
D/C Lap Instructions-KIDO Reconcile Patient Problems Problems Reviewed?: Yes New, Converted, or Re-Newed RX: RX on Chart Follow Up Appt in 1 week Activity as tolerated No driving for 24 hours No driving while on pain medications Regular Diet Symptoms to Report: Fever over 101 degree F, Nausea/Vomiting Infection Signs and Symptoms to report: Increased redness, Foul odor of wound, Increased drainage Bathing instructions: May shower Operative Area Clean/Dry; Keep incision clean/dry If any problems/questions: Contact your physician or go to Emergency Room KAVITHA GUTIERREZ APRN Apr 28, 2023 12:32
[2023-04-28] MEDS ORDERED: MIDAZOLAM INJ 2 MG/2 ML VIAL ONE (12:33)
--- NOTE | 2023-04-28 13:04 | Progress Note-Post Operative ---
Post-Operative Progess Note Surgeon (s)/Byproducts Maker (s) Surgeon DAILY DESHPANDE MD Byproducts Maker: rober curry APRN Pre-Operative Diagnosis Right buttock symptomatic dermatofibroma Post-Operative Diagnosis same(5x5cm) Procedure & Operative Findings Date of Procedure 04/28/23 Procedure Performed/Findings excision buttock lesion including skin and subcutaneous tissue 5x5cm. Anesthesia Type mac with local Estimated Blood Loss Estimated blood loss (mL): minimal Specimens/Packing Specimens Removed left buttock lesion DAILY DESHPANDE MD Apr 28, 2023 13:04
--- NOTE | 2023-04-28 13:21 | Anesthesia-General Post-Op ---
General Patient Condition Mental Status/LOC: Same as Preop Cardiovascular: Satisfactory Nausea/Vomiting: Absent Respiratory: Satisfactory Pain: Controlled Complications: Absent Post Op Complications Complications None Follow Up Care/Instructions Patient Instructions None needed. Anesthesia/Patient Condition Patient Condition Patient is doing well, no complaints, stable vital signs, no apparent adverse anesthesia problems. No complications reported per nursing. TELLO BEAN CRNA Apr 28, 2023 13:21
[2023-04-28] MEDS ORDERED: morphine INJ 10 MG/ML 1ML (SYR OR VIAL) IVP ONE (13:30)
[2023-04-28] MEDS ORDERED: fentaNYL INJECTION 100 MCG/2 ML VIAL IVP ONE (13:30)
--- NOTE | 2023-04-28 19:23 | OPERATIVE REPORT ---
DATE OF SERVICE: 04/28/2023 ATTENDING PRIMARY CARE PHYSICIAN: Dr. Yamini Delgado. PREOPERATIVE DIAGNOSIS: Right buttock dermatofibroma. POSTOPERATIVE DIAGNOSES: Right buttock dermatofibroma with the dimensions of the lesion 5 x 5 cm in size. PROCEDURE: Excision of left buttock lesion including skin and subcutaneous tissue, 5 x 5 cm in size. SURGEON: Daily Deshpande MD DYNAMICS AX CONSULTANT: Red Arthur APRN ANESTHESIA: Monitored anesthesia care with local. ESTIMATED BLOOD LOSS: Minimal. FINDINGS: Well-circumscribed lesion, which was deeper within the subcutaneous tissue with excised dimensions 5 x 5 cm. DISPOSITION: The patient tolerated the procedure well. INDICATIONS: The patient is a 23-year-old female who noticed a lesion as well as pain along the left lateral buttock, approximately one year ago. The lesion had grown larger in size and become more painful. She then underwent a biopsy of a lesion, which came back as a dermatofibroma. She had also described continued pain within the region of the lesion. DESCRIPTION OF PROCEDURE: The patient was brought to the operating room and remained on her gurney. After adequate IV pain and sedative medications and monitored anesthesia care, the patient was placed in the right lateral decubitus position and the buttocks prepped and draped in standard surgical fashion. A 1% lidocaine with epinephrine was then used to anesthetize the overlying skin as well as the subcutaneous tissue. A visible portion of the lesion was then excised in an elliptical shape using a #15 blade. There was a central firmness in the subcutaneous tissue below the visible lesion and this was completely core out using a #15 blade with visualization of good hemostasis. The dimensions of the lesion were 5 x 5 cm in size. Good hemostasis was observed and the subcutaneous tissue was then reapproximated using 3-0 Vicryl interrupted sutures and the skin was closed using 4-0 Monocryl running subcuticular suture. Wound was then cleaned and covered with Dermabond. The patient tolerated the procedure well. We will instruct her to do no heavy lifting or exertion for the next 2 weeks and to keep the area clean and dry and we will have her follow up in approximately 2 weeks to discuss the pathology results. Job ID: [id number] DocumentID: [id number] Dictated Date: 04/28/2023 13:09:00 Chef'S Assistant Date: 04/28/2023 19:20:00 Dictated By: DAILY DESHPANDE MD
== END 2023-04-28 14:17 | disposition home or self-care (01) ==
LOC: SDC 10:57
PROVIDERS: ATTEND Surgery
DX: D23.5 Other benign neoplasm of skin of trunk (principal); E66.01 Morbid (severe) obesity due to excess calories; F17.290 Nicotine dependence, other tobacco product, uncomplicated; Z68.28 Body mass index [BMI] 28.0-28.9, adult
CPT/HCPCS: 84703; 87081

== ENCOUNTER 2023-07-30 09:26 | Emergency (ER) | payer MEDICAID ==
[~2023-07-30] VITALS: Ht 160 cm; Wt 65.0 kg
[~2023-07-30 09:26] MED LIST changes: +DICY-11 PO; -DICY10CA12 PO; +TRAM50TA3 PO
--- NOTE | 2023-07-30 09:34 | ED Cough/URI ---
General Chief Complaint: Cough/Cold/Flu Symptoms Stated Complaint: SOB; COUGH History of Present Illness Date Seen by Provider: Jul 30, 2023 Time Seen by Provider: 09:33 Initial Comments 23-year-old female presents with cough, sore throat just not feeling well for about the last 3 to 4 days. No reports of fever.. Feels like her chest a little tight. She had a headache. Allergies and Home Medications Allergies Coded Allergies: No Known Drug Allergies (Unverified , 04/22/23) Patient Home Medication List Home Medication List Reviewed: Yes Gabapentin (Gabapentin) 300 Mg/6 Ml (6 Ml) Solution, 300 MG PO BID, (Reported) Entered as Reported by: Roseanne Tao on 04/21/23 145 Meloxicam (Meloxicam) 15 Mg Tablet, 15 MG PO DAILY, (Reported) Entered as Reported by: Roseanne Tao on 04/21/23 145 Phentermine HCl (Phentermine HCl) 37.5 Mg Tablet, 37.5 MG PO DAILY, (Reported) Entered as Reported by: Roseanne Tao on 04/21/23 145 Tramadol HCl (Tramadol HCl) 50 Mg Tablet, 50-100 MG PO Q4H PRN for PAIN BREAKTROUGH Prescribed by: KAVITHA GUTIERREZ on 04/28/23 1231 Review of Systems Review of Systems Constitutional: No dizziness, No fever, No weakness EENTM: nose congestion, throat pain Respiratory: cough Cardiovascular: No chest pain Gastrointestinal: No abdominal pain, No nausea, No vomiting Genitourinary: no symptoms reported Musculoskeletal: no symptoms reported Skin: no symptoms reported Past Fmqjayp-Egjrnf-Svcsyp Hx Immunizations Up To Date Tetanus Booster (TDap): Unknown PED Vaccines UTD: Yes First/Initial COVID19 Vaccinat: 12/01 Second COVID19 Vaccination Brayden: 01/01 Third COVID19 Vaccination Date: NONE Seasonal Allergies Seasonal Allergies: Yes Past Medical History Surgery/Hospitalization HX: Gallstones with biliary colic Jul 2021. Surgeries: Yes (RIGHT HAND, SCOPE RIGHT SHOULDER) Gallbladder, Orthopedic Respiratory: No Currently Using CPAP: No Currently Using BIPAP: No Cardiac: No Neurological: No Female Reproductive Disorders: Denies Sexually Transmitted Disease: No HIV/AIDS: No Genitourinary: No Gastrointestinal: Yes Gall Bladder Disease Musculoskeletal: Yes (TORN ROTATOR CUFF) Fractures Endocrine: No HEENT: No Loss of Vision: Denies Hearing Impairment: Denies Cancer: No Psychosocial: No Integumentary: No Blood Disorders: No Adverse Reaction/Blood Tranf: No Physical Exam Vital Signs - First Documented 07/30/23 09:35 Temp 36.4 Pulse 87 Resp 16 B/P (MAP) 110/45 (66) Pulse Ox 100 O2 Delivery Room Air Capillary Refill : Height: '" Weight: lbs. oz. kg; 28.36 BMI Method: General Appearance: WD/WN, no apparent distress HEENT: PERRL/EOMI, pharyngeal erythema (mild ) Respiratory: lungs clear, normal breath sounds Cardiovascular: normal peripheral pulses, regular rate, rhythm Gastrointestinal: non tender, soft Neurologic/Psychiatric: alert, normal mood/affect, oriented x 3 Skin: normal color, warm/dry Progress/Results/Core Measures Suspected Sepsis SIRS Temperature: Pulse: Respiratory Rate: Blood Pressure / Mean: Results/Orders Lab Results Laboratory Tests Test 07/30/23 09:33 Range/Units Influenza Type A (RT-PCR) Not Detected Not Detecte Influenza Type B (RT-PCR) Not Detected Not Detecte SARS-CoV-2 RNA (RT-PCR) Not Detected Not Detecte Group A Streptococcus Screen Not Detected NotDetected My Orders Orders - REGAN RINCON DO Rapid Strep A Screen (07/30/23 09:34) Influenza A And B By Pcr (07/30/23 09:34) Covid 19 Inhouse Test (07/30/23 09:34) Vital Signs/I&O 07/30/23 09:35 Temp 36.4 Pulse 87 Resp 16 B/P (MAP) 110/45 (66) Pulse Ox 100 O2 Delivery Room Air Capillary Refill : Progress Note : Progress Note Patient's diagnostic studies were ordered reviewed and interpreted by me. Patient is negative for influenza, COVID and strep. Patient with likely viral bronchitis. Discussed with her supportive care. She is stable and discharged home. Departure Impression Primary Impression: Acute viral bronchitis Disposition: 01 HOME, SELF-CARE Condition: Stable Departure-Patient Inst. Referrals: OPHELIA MOSER MD (PCP) Primary Care Physician Patient Instructions: Cough, Runny Nose, and the Common Cold (DC), Viral Upper Respiratory Infection, Adult (DC) Add. Discharge Instructions: Encourage you to drink plenty of fluids. You may use honey for the cough. Tylenol and ibuprofen for fever. Get plenty of rest. Follow-up with your primary care provider in about 7 days if symptoms have not improved or if they worsen. All discharge instructions reviewed with patient and/or family. Voiced understanding. REGAN RINCON DO Jul 30, 2023 09:34
[2023-07-30 09:35] VITALS: BP 110/45
== END 2023-07-30 10:25 | disposition home or self-care (01) ==
LOC: EDUNIT# 09:26 → ER FS 09:27
DX: J20.8 Acute bronchitis due to other specified organisms (principal)
CPT/HCPCS: 87430; 87636; 99283